=== PATIENT | male | born 1965 | race Caucasian/White ===

== ENCOUNTER 2018-01-04 01:05 | Emergency (ER) | payer MEDICAID ==
[2018-01-04 01:32] VITALS: O2SAT 98
[2018-01-04] MEDS ORDERED: Silver Sulfadiazine 1% CREAM (50 gm) TOP STA (01:54)
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
[2018-01-04 02:22] LABS: BASO # 0.1 K/uL (0.0-0.2); BASO % 1.2 % (0.0-2.0); EOS # 0.1 K/uL (0.0-0.7); EOS % 1.1 % (0.0-4.0); HEMOGLOBIN 14.8 g/dL (12.0-18.0); LYMPH # 3.1 K/uL (1.0-4.3); LYMPH % 47.4 % (20.0-40.0); MEAN CELL VOLUME 92.2 fl (80.0-94.0); MEAN CORPUSCULAR HEMOGLOBIN 31.7 pg (27.0-31.0); MEAN CORPUSCULAR HGB CONC 34.4 g/dL (33.0-37.0); MEAN PLATELET VOLUME 10.3 fl (7.2-11.7); MONO # 0.6 K/uL (0.0-0.8); MONO % 9.5 % (0.0-10.0); NEUT # 2.7 K/uL (1.8-7.0); NEUT % 40.8 % (50.0-75.0); NRBC % 0.1 % (0.0-0.0); RBC 4.67 Mil/uL (4.40-5.90); RED CELL DISTRIBUTION WIDTH 13.2 % (11.5-14.5); WHITE BLOOD COUNT 6.6 K/uL (4.8-10.8)
[2018-01-04] MEDS ORDERED: Silver Sulfadiazine 1% CREAM (50 gm) ONE (02:22)
[2018-01-04 02:23] LABS: VENOUS BLOOD GAS BASE EXCESS 6.2 mmol/L (0.0-2.0); VENOUS BLOOD GAS PCO2 54 mmHg (40-60); VENOUS BLOOD GAS PO2 29 mm/Hg (30-55); VENOUS BLOOD PH 7.39 (7.32-7.43)
[2018-01-04 02:34] LABS: ALB/GLOB RATIO 1.3 (1.0-2.1); CALCIUM 9.1 mg/dL (8.4-10.2); GFR NON-AFRICAN AMERICAN > 60
[2018-01-04 02:35] LABS: ALT/SGPT 41 U/L (21-72); AST/SGOT 37 U/L (17-59); BLOOD UREA NITROGEN 18 mg/dl (9-20)
[2018-01-04 10:18] VITALS: BP 132/81; PULSE 82; RESP 16; TEMP 98
== END 2018-01-04 04:00 | disposition home or self-care (01) ==
LOC: H.ER 01:05
DX: T24.001A Burn of unspecified degree of unspecified site of right lower limb, except ankle and foot, initial encounter (principal); X08.8XXA Exposure to other specified smoke, fire and flames, initial encounter; Y92.89 Other specified places as the place of occurrence of the external cause
CPT/HCPCS: 80053; 82803; 85025; 87040; 87070; 96374; 99285; J1885